=== PATIENT | male | born 1960 | race Caucasian/White ===

== ENCOUNTER 2018-08-28 12:30 | Emergency (ER) | payer BC ==
[2018-08-28 12:35] VITALS: BP 132/81
[2018-08-28] MEDS ORDERED: Bacitracin/Neomycin/Polymyxin B Oint 0.9 GM U/D Packet TOP ONE (13:00)
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
== END 2018-08-28 13:10 | disposition home or self-care (01) ==
LOC: LL.ED 12:30
DX: T20.02XA Burn of unspecified degree of lip(s), initial encounter (principal); S80.819A Abrasion, unspecified lower leg, initial encounter; S01.81XA Laceration without foreign body of other part of head, initial encounter; W40.8XXA Explosion of other specified explosive materials, initial encounter
CPT/HCPCS: 99284

== ENCOUNTER 2020-06-14 08:40 | Day surgery (SDC) | payer BC ==
[2020-06-12 15:02] LABS: CORONAVIRUS COVID-19 NAA NEGATIVE (NEGATIVE)
[~2020-06-14 08:40] MED LIST: Propofol 200 MG/20 ML SDV ONE
[2020-06-14] MEDS ORDERED: Sodium Chloride 0.9% 10 ML Syringe FLUSH PRN (08:45)
[2020-06-14] MEDS: Lactated Ringers 1,000 ML IV SCH (09:24)
[2020-06-14] MEDS ORDERED: Propofol 200 MG/20 ML SDV ONE ×2 (09:35→10:24)
--- NOTE | 2020-06-14 09:42 | PCM.PN ---
- General Info Date of Service: 06/14/20 - Review of Systems Systems Review Comment:: 59-year-old male here for colonoscopy. He has a known history of colon polyps. He denies any recent change in bowel pattern. His recent history and physical is reviewed and no significant changes are noted. I have discussed the proposed colonoscopy with the patient. Risks such as but not limited to bleeding and GI injury reviewed. He agrees to proceed. - Patient Data Vitals - Most Recent: Last Vital Signs Temp 98.7 F 06/14/20 09:26 Pulse 74 06/14/20 09:26 Resp 18 06/14/20 09:26 BP 125/91 H 06/14/20 09:26 Pulse Ox 99 06/14/20 09:26 Weight - Most Recent: 124.738 kg Med Orders - Current: Current Medications Lactated Ringer's (Ringers, Lactated) 1,000 mls @ 125 mls/hr IV ASDIRECTED PENG Last Admin: 06/14/20 09:24 Dose: 125 mls/hr Documented by: Sodium Chloride (Saline Flush) 10 ml FLUSH ASDIRECTED PRN PRN Reason: Keep Vein Open Discontinued Medications Propofol (Diprivan 20 Ml) Confirm Administered Dose 400 mg .ROUTE .STK-MED ONE Stop: 06/14/20 08:14 Sepsis Event Note - Focused Exam Vital Signs: Vital Signs Temp Pulse Resp BP Pulse Ox 06/14/20 09:26 98.7 F 74 18 125/91 H 99 - Problem List Review Problem List Initiated/Reviewed/Updated: Yes - My Orders Last 24 Hours: My Active Orders 06/14/20 08:45 Patient Status [ADT] Routine Peripheral IV Care [RC] . DIRECTED Verify Patient Consent Obtain [RC] ASDIRECTED Lactated Ringers [Ringers, Lactated] 1,000 ml IV ASDIRECTED Sodium Chloride 0.9% [Saline Flush] 10 ml FLUSH ASDIRECTED PRN Peripheral IV Insertion Adult [OM.PC] Routine - Assessment Assessment:: History of colon polyps - Plan Plan:: Colonoscopy
--- NOTE | 2020-06-14 10:36 | PCM.OPNOTE ---
- General Post-Op/Procedure Note Date of Surgery/Procedure: 06/14/20 Operative Procedure(s): Colonoscopy with polypectomy Findings: Sessile ascending colon polyp Mild left colon diverticulosis Pre Op Diagnosis: History of colon polyps Post-Op Diagnosis: Colon polyp. Sigmoid diverticulosis Anesthesia Technique: MAC Primary Surgeon: Efrain Rodriguez Pathology: Colon polyp EBL in mLs: 0 Complications: None Condition: Good
--- NOTE | 2020-06-14 11:10 | OR ---
Date of Procedure: 06/14/2020 PREOPERATIVE DIAGNOSIS: History of colon polyps. POSTOPERATIVE DIAGNOSIS: Ascending colon polyp and sigmoid diverticulosis. OPERATIONS PERFORMED: Colonoscopy with polypectomy. INDICATIONS FOR SURGERY: This 59-year-old male has a known history of colon polyps and comes today for surveillance colonoscopy. FINDINGS: Single polyp was noted on today's exam. This is a 7-mm sessile polyp noted in the ascending colon. The patient has a few scattered diverticula in the left side, but the colon otherwise appears normal. DESCRIPTION OF PROCEDURE: The patient was taken to the operating room. He was given intravenous sedation, and with him in the left lateral decubitus position, digital rectal exam was performed showing no rectal masses. The Olympus colonoscope was inserted into the rectum. Retroflexed examination of the rectal canal was performed. The scope was then carefully advanced under direct visualization through the entire length of the colon until the cecum was reached. The patient had a somewhat long tortuous colon and reaching the cecum was difficult. It required changes in patient position and hand pressure, but eventually was able to be safely accomplished. The cecum was identified by noting the normal internal cecal anatomy including the appendiceal orifice and the ileocecal valve. The scope was then slowly withdrawn sequentially re- examining the colonic segments, and in the ascending colon, the above-described polyp was identified. It was removed with a cautery snare and retrieved into a polyp trap. Examination was then continued until the entire colon and rectum had been fully examined. The scope was then removed, and the patient was taken from the operating room in satisfactory condition. ESTIMATED BLOOD LOSS: Zero. COMPLICATIONS: None. PROGNOSIS: Good. CAPRI Rodriguez MD /[id number]
[2020-06-14 12:19] VITALS: BP 120/75; PULSE 60
--- NOTE | 2020-06-14 12:41 | PCM.OPNOTE ---
- General Post-Op/Procedure Note Date of Surgery/Procedure: 06/14/20 Operative Procedure(s): Colonoscopy with Polypectomy Findings: Small Ascending colon polyp Few small diverticuli in left colon Pre Op Diagnosis: History of colon polyps Post-Op Diagnosis: Colon polyp. Mild Sigmoid Diverticulosis Anesthesia Technique: MAC Primary Surgeon: Efrain Rodriguez Pathology: Ascending colon polyp EBL in mLs: 0 Complications: None Condition: Good Free Text/Narrative:: Intake & Output 06/13/20 06/14/20 06/14/20 22:59 06:59 14:59 Intake Total 340 Balance 340
== END 2020-06-14 11:48 | disposition home or self-care (01) ==
LOC: LL.SDS 08:40
PROVIDERS: ATTEND Surgery
DX: Z12.11 Encounter for screening for malignant neoplasm of colon (principal); D12.2 Benign neoplasm of ascending colon; K57.30 Diverticulosis of large intestine without perforation or abscess without bleeding; I10 Essential (primary) hypertension; E78.5 Hyperlipidemia, unspecified; Z79.899 Other long term (current) drug therapy; Z79.82 Long term (current) use of aspirin; Z86.010 Personal history of colon polyps; Z98.890 Other specified postprocedural states; Z01.812 Encounter for preprocedural laboratory examination; Z20.822 Contact with and (suspected) exposure to COVID-19
CPT/HCPCS: 00811; J2704; J7120; U0002